=== PATIENT | female | born 1940 | race Caucasian/White ===

== ENCOUNTER 2018-10-28 11:20 | Outpatient (CLI) | payer OTHER | END 2018-10-28 11:23 | LOC: LAB 11:20 | PROVIDERS: ATTEND Family Medicine | DX: E11.9 Type 2 diabetes mellitus without complications (principal); E03.9 Hypothyroidism, unspecified | CPT/HCPCS: 83036; 84443 ==

== ENCOUNTER 2019-01-27 10:35 | Outpatient (CLI) | payer OTHER ==
[2019-01-27 11:49] LABS: eGFR (Non-African) > 60
== END 2019-01-27 10:36 ==
LOC: LAB 10:35
PROVIDERS: ATTEND Family Medicine
DX: E11.9 Type 2 diabetes mellitus without complications (principal); Z79.4 Long term (current) use of insulin
CPT/HCPCS: 36415; 80053; 80061; 83036

== ENCOUNTER 2019-06-15 15:19 | Outpatient (CLI) | payer OTHER | END 2019-06-15 15:21 | LOC: LAB 15:19 | PROVIDERS: ATTEND Family Medicine | DX: E11.9 Type 2 diabetes mellitus without complications (principal); Z79.4 Long term (current) use of insulin | CPT/HCPCS: 36415; 83036 ==

== ENCOUNTER 2019-08-17 09:51 | Outpatient (CLI) | payer OTHER ==
--- NOTE | 2019-08-17 19:36 | Diagnostic Imaging Report ---
PATIENT MR#: [id number] PATIENT PATIENT NAME: TOPHER LEE DATE OF : 1940 REFERRING PHYSICIAN: Jin Montana EXAM DATE: 08/17/2019 ACCESSION NUMBER: [id number] EXAM DESCRIPTION: DEXA DUAL ENERGY X-RAY ABSORPTIOMETRY (DXA) A DXA scan was performed on August 17, 2019 using a [employer] densitometer. IMPRESSION: Based on BMD, diagnosis is consistent with normal (based on WHO criteria). Fracture risk is low. Follow-up densitometry may be considered in 2 years. INDICATION: POST MENOPAUSAL Technical Quality: Diagnostic RESULTS: Lumbar Spine: The BMD measured in the L2-L4 region is 1.462 g/cm2. T-score 2.3. Femoral Neck: The BMD measured at the left femoral neck is 0.919 g/cm2. T-score -0.9 Read by: Dr. Justice Villarreal Transcribed by: Justice Villarreal Transcribed Date: 08/17/2019 7:36:21 PM Electronically signed by: Dr. Justice Villarreal Date signed: 08/17/2019 7:36:21 PM
== END 2019-08-17 10:00 ==
LOC: RAD 09:51
PROVIDERS: ATTEND Internal Medicine Hematology & Oncology
DX: C50.012 Malignant neoplasm of nipple and areola, left female breast (principal); Z17.0 Estrogen receptor positive status [ER+]
CPT/HCPCS: 77080

== ENCOUNTER 2019-09-15 10:09 | Outpatient (CLI) | payer OTHER | END 2019-09-15 10:14 | LOC: LAB 10:09 | PROVIDERS: ATTEND Family Medicine | DX: E11.9 Type 2 diabetes mellitus without complications (principal) | CPT/HCPCS: 36415; 83036 ==

== ENCOUNTER 2019-10-06 11:07 | Outpatient (CLI) | payer OTHER ==
[~2019-10-06 11:07] MED LIST: BUPIVACAINE HCL 0.25% (2.5MG/ML) PF 10ML VIAL IV ONE; Lidocaine 1% 5ml 10 MG/ML VIAL ONE; methylPREDNISolone ACETATE 40 MG/ML VIAL IM ONE
--- NOTE | 2019-10-06 13:39 | Diagnostic Imaging Report ---
PATIENT MR#: [id number] PATIENT PATIENT NAME: ROSA OBANDO DATE OF : 1940 REFERRING PHYSICIAN: DAYNA RAMIREZ EXAM DATE: 10/06/2019 ACCESSION NUMBER: [id number] EXAM DESCRIPTION: C SPINE 4 VIEWS OR MORE HISTORY: RT SHOULDER PAIN WORSE WTH MOVEMENT OR ACTIVITY COMPARISON: No relevant comparison is available at the time of interpretation. C-SPINE XRAY, 5 views including obliques: Vertebral bodies: No compression deformities. The dens is intact and the lateral masses are symmetric . Disc spaces: Mild degenerative disc narrowing at C5-6. Moderate degenerative disc narrowing at C6-7. Alignment: Mild straightening of the normal cervical lordosis without listhesis. Neural foramina: Right neural foraminal narrowing at C5-6 and C7-T1. Left neural foraminal narrowing at C5-6 and C6-7. IMPRESSION: 1. Degenerative disc disease, moderate at C6-7. 2. Neural foraminal narrowing at C5-6 and C6-7 as described above. Read by: Dr. Justice Villarreal Transcribed by: Justice Villarreal Transcribed Date: 10/06/2019 1:39:02 PM Electronically signed by: Dr. Justice Villarreal Date signed: 10/06/2019 1:39:02 PM
--- NOTE | 2019-10-06 13:43 | Diagnostic Imaging Report ---
PATIENT MR#: [id number] PATIENT PATIENT NAME: ROSA OBANDO DATE OF : 1940 REFERRING PHYSICIAN: DAYNA RAMIREZ EXAM DATE: 10/06/2019 ACCESSION NUMBER: [id number] EXAM DESCRIPTION: SHOULDER 2 VIEWS OR MORE CLINICAL HISTORY: RT SHOULDER PAIN WORSE WTH MOVEMENT OR ACTIVITY PT STATES RT SHOULDER PAIN POPS AND CRACKS X1 YR COMPARISON: No study for comparison is available at the time of interpretation. TECHNIQUE: DX right shoulder, 3 views Osseous structures: The osseous structures are normal with no evidence of fracture or dislocation. Th ere is no osseous lesion or periosteal reaction. Joint spaces: The bones are well aligned. Minimal degenerative osteophytic change of the posterior gl enoid rim. Minimal AC joint arthrosis. Soft tissues: There is normal appearance of the soft tissues with no radiopaque foreign body seen. IMPRESSION: Mild degenerative changes of the glenohumeral and acromioclavicular joints. Read by: Dr. Justice Villarreal Transcribed by: Justiec Villarreal Transcribed Date: 10/06/2019 1:42:55 PM Electronically signed by: Dr. Justice Villarreal Date signed: 10/06/2019 1:42:55 PM
--- NOTE | 2019-10-11 12:07 | CONSULTATION REPORT ---
DATE OF CONSULTATION: 10/06/2019 CHIEF COMPLAINT: Right shoulder pain. HISTORY OF PRESENT ILLNESS: This 79-year-old white female is seen for recommendations regarding treatment of right shoulder pain which she indicates has been present for about a year. She did recently see Dr. Julia Hua, her primary care provider, primarily for treatment of type 2 diabetes mellitus requiring insulin. Apparently, Ms. Elliott is a brittle diabetic, says she has a hard time getting good control, is currently on 10 units of Novolin 70/30 four times a day. In any event, her most recent A1c was 11.9 in January 2019. With regard to the right shoulder, she reports she is right-handed. She recalls no injury or event that started her hurting. She indicates onset was gradual, pain is constant, dull and worse at night. She describes it also as a throbbing-type sensation, rates her pain as moderate in severity and worsening. She says her pain at rest is 0/10, pain with activity is 8/10. Pain has progressed with activities of daily living. She does report night pain which awakens her at night. She reports her right upper extremity/shoulder pain is worse with elevation activity, lifting, repetitive activity, throwing and any work. Shoulder pain is made a little better by heat. She has tried Tylenol, takes that routinely on an as-needed basis. She is able to take nonsteroidals such as Aleve and ibuprofen, but has not done so, she reports. In the past, she has tried acupuncture and chiropractic. She does note some dysesthesias in the right upper extremity, pain, worse at night when she tries to sleep. She has observed some stiffness and crepitus in the right shoulder. She does report neck pain which radiates to the right upper extremity. She says it goes into the elbow, arm and hand. She says her elbow, arm and hand seem to hurt worse than the shoulder most of the time, but sometimes the shoulder hurts worse and up into the back of her neck on the right side. She has not had previous x-rays of the cervical spine or the shoulder. PAST MEDICAL HISTORY: She does report having, in addition to the type 2 diabetes requiring insulin, with brittle diabetes, rheumatoid disorder. She says this is somewhat diffuse, is not sure if she had an actual diagnosis made of rheumatoid arthritis based on blood tests or whether this was a clinical diagnosis, but she has been told by Dr. Hiro Alvarado in the past in [place] that she may have rheumatoid disease. Her mother had rheumatoid disease. The patient also reports a remote history of some kidney problems, presumably urinary tract infections from her description, but she is not sure. She also has bad teeth, describing this as pyorrhea. The patient does additionally list joint pain in the knees, ankles, hips and feet as well as irritable bowel. She reports she has high thyroid/hyperthyroidism. She also has varicose veins. She reports she has never had a difficult intubation. She does report that she has a small airway, however. She was treated for breast cancer by Dr. Mueller in [place] 03/2019, also reports having had the hysterectomy. PAST SURGICAL HISTORY: Positive for lumpectomy and lymph node removal, left breast, in 2019. She is status post previous full hysterectomy and appendectomy. SOCIAL HISTORY: She denies nicotine use currently or in the past. She denies alcohol use and denies history of alcohol abuse. She denies illicit drug use, abuse or history of same. She is retired. She does not routinely take fish oil. The patient is . She had one child and one miscarriage. FAMILY HISTORY: Positive for cancer in mother, heart attack in father, heart disease in father, diabetes in two siblings, hypertension in one sibling, heart attack in two siblings, heart disease in two siblings. REVIEW OF SYSTEMS: Positive for some weight loss, decreased appetite, history of breast mass, loss of hearing, ringing in ears, constant throat clearing, difficulty swallowing, use of corrective lenses. She can walk two blocks without shortness of breath, she sleeps on one pillow at night. She does not use oxygen. She does note diarrhea and constipation at varying times, also has had hemorrhoids. The patient reports some memory loss over time, and she has had some fingernail changes. MEDICATIONS: The patient's medications are listed to include anastrozole 1 mg every morning. She takes two different thyroid medications, takes gabapentin 300 mg 2 to 3 times daily for pain, also takes selenium 250 mcg every morning, in addition to the insulin 10 units four times daily subcutaneous. She does take various vitamins and supplements including vitamin D3, alpha-lipoic acid, calcium and magnesium, cranberry, melatonin, a low-dose aspirin every evening, and B12 500 mg every morning. She does report taking acetaminophen 500 mg p.r.n. and Allergy Relief for seasonal allergies 25 mg as needed. PHYSICAL EXAMINATION: The patient is alert and oriented to person, place and time. She responds appropriately, but somewhat slowly. Her vital signs do reveal temperature 98.4, respiratory rate 16, pulse 100, blood pressure 148/71. Oxygen saturation is 92% on room air. The patient is 5 4 in height with a weight of 151 pounds. HEENT: Normocephalic. Neck: Supple. The patient does have some discomfort on rotation of her head to either side, particularly with extension. She says it hurts in the right side of her neck in the back and in the upper shoulder when she rotates her head to the left with extension. The patient does have active abduction to 110 degrees on the right, 130 degrees on the left. She can forward flex actively on the right to 110 degrees as well, 130 degrees on the left. She does have pain on abduction against resistance on the right, hurts in the shoulder and deltoid area, as well as the back of her neck to a lesser degree. On the left, she abducts against resistance without difficulty at 90 degrees. The patient can internally rotate on the right to the lower thoracic region. On the left, she can internally rotate such as to reach the midthoracic region. The patient does have some mild discomfort and limitation in adduction on the right, not present on the left. She does have some mild tenderness at the AC joint, mild tenderness anterolateral acromion region, and some mild tenderness in the right trapezius/paraspinous musculature cervical region. The patient does have mild crepitus on range of motion of both shoulders. She has no gross instability on anteroposteriorly directed force on either glenohumeral joint. Pulses are present and symmetric, radial aspect of wrists bilaterally, with normal skin color and appearance distally. Normal muscle strength and tone distally. The patient does report some dysesthesias at times into the right upper extremity, although she says today it does not feel too bad, right upper extremity, tends to bother her more at night. Good capillary refill is noted distally, both upper extremities. Normal skin color and appearance. Abdomen: Soft, nontender. Lungs: Clear to percussion bilaterally. X-RAYS: RIGHT SHOULDER: Plain film x-rays obtained of the right shoulder reveals some mild arthritic change at the AC joint, but good AC joint space noted. There is good alignment of the glenohumeral articular surfaces with good joint space radiographically, glenohumeral surface. CERVICAL SPINE: Cervical spine x-rays are obtained and there is prominent disc space narrowing/degenerative changes noted at C6-7 with osteophyte/some spondylosis noted. There are lesser changes noted at C5-6, quite minimal compared to C6-7. No acute bony abnormalities are evident. IMPRESSION: 1. Degenerative disc disease, C6-7, with likely radicular symptomatology, right upper extremity. 2. Right shoulder pain/impingement/rotator cuff tendinitis. This appears to be not the primary source of her pain, however, on my assessment. 3. Brittle insulin-dependent diabetes mellitus. 4. History of breast cancer. RECOMMENDATIONS: Options are discussed with the patient. 1. I explained to her that she may benefit to a degree from subacromial space injection, and I did sterilely inject the right subacromial space, after discussing with her the expectation that her sugar levels will likely be a little high for the next couple of weeks secondary to having to undergo that injection. 2. I did developmental training counselor the patient regarding activity modification regarding the shoulder and she is going to try doing some shoulder rehab exercises on a home basis, which I recommended. 3. She is also advised to begin taking Aleve two p.o. twice daily with meals, as tolerated. As she does report some irritable bowel symptomatology in the past, but has not tried nonsteroidal medications per her statements, I think it is worthwhile to see how she does with this. She should stop the Aleve if she has any symptoms, epigastric or otherwise, secondary to taking the Aleve (generic naproxen is fine as well). 4. In addition, I recommended that patient undergo noncontrast MRI of the cervical spine to assess for the C6-7 abnormalities and its effect on the right upper extremity nerve roots/right upper extremity radicular symptomatology. 5. I also recommended spine doctor referral in one to two months. 6. I would like to see her back for reassessment of the right shoulder in about a month. She is to continue follow-up with Dr. Julia Hua for routine primary care and as follow-up post the treatment for breast cancer in the last year. I did advise her that I do not anticipate giving her additional corticosteroid injections in the right shoulder. Recheck with me in one month. Hopefully, we will have results of the noncontrast MRI of the cervical spine and she will have a spine doctor referral at that time as well. Both she and I hope that she does note some improvement in the right shoulder, but I reiterated to her that I believe that, although she may have some degree of primary right shoulder pathology, I expect the bulk of her symptomatology is from cervical spine origin. She acknowledges. PROCEDURE NOTE: I sterilely injected the right subacromial space using a 22- gauge needle with 20 mg of Depo-Medrol and 2 mL of 1% plain xylocaine with 2 mL of 0.25% plain Marcaine. The patient tolerated the procedure well without complications. Sincerely, Marek Portillo M.D. JOSE LUIS/migdalia Job #[id number] [place]
== END 2019-10-06 13:00 ==
LOC: ORHTO 11:07
PROVIDERS: ATTEND Orthopaedic Surgery
DX: M51.36 Other intervertebral disc degeneration, lumbar region (principal); E11.9 Type 2 diabetes mellitus without complications; Z79.4 Long term (current) use of insulin; Z85.3 Personal history of malignant neoplasm of breast
CPT/HCPCS: 72050; 73030; 99203; J1030; J3490